=== PATIENT | female | born 1960 | race Caucasian/White ===

== ENCOUNTER 2017-07-04 14:29 | Emergency (ER) | payer BC, OTHER ==
[~2017-07-04] VITALS: Ht 157.5 cm; Wt 107.4 kg
[~2017-07-04 14:29] MED LIST: BP MED; DIABETES MED
[2017-07-04 14:32] VITALS: Ht 157.5 cm; Wt 107.4 kg
[2017-07-04] MEDS ORDERED: HYDROCODONE/APAP (5/325) TAB PO ONE (17:00)
--- NOTE | 2017-07-04 17:12 | RADRPT ---
PROCEDURE: Left wrist series CLINICAL INDICATION: Left wrist pain. TECHNIQUE: AP, oblique, and lateral views of the left wrist were obtained. COMPARISON: None FINDINGS: No acute fracture or dislocations are seen. The osseous structures are well mineralized. Moderate osteoarthritis of the radiocarpal joint is seen. The remaining articular surfaces are normal. No so ft tissue abnormalities are seen. IMPRESSION: Moderate osteoarthritis of the radiocarpal joint. RPTAT: HPNM Physician Ileana Date Time Electronically viewed and signed by Physician Ileana on 07/04/2017 17:12 /
[2017-07-04] MEDS ORDERED: HYDR-906 PO (17:27)
[2017-07-04] MEDS ORDERED: NAPR-688 PO (17:27)
[2017-07-04] MEDS ORDERED: POLY17PO6 PO (17:29)
--- NOTE | 2017-07-04 17:32 | ERD ---
ER Documentation Chief Complaint Chief Complaint left wrist pain x 1 month HPI This 56-year-old female comes in with family for having left wrist pain on and off for a month. It hurts most when she flexes or extends the wrist. Pain is mostly in the lateral side of the wrist and does travel up the arm on the lateral side sometimes to the elbow. She has no known trauma to the area during this time or before. She is a diabetic with hypertension is otherwise healthy. ROS All systems reviewed and are negative except as per history of present illness. Medications Home Meds Active Scripts Polyethylene Glycol* (Miralax*) 17 Gm Powd.pack, 17 GM PO DAILY for CONSTIPATION , #7 Prov:ELLA STREET DO 07/04/17 Hydrocodone/Acetaminophen ([place] 5-325 Tablet) 1 Each Tablet, 1 EACH PO Q6 for SEVERE PAIN LEVEL 7-10, #20 TAB Prov:ELLA STREET DO 07/04/17 Naproxen* (Naproxen*) 500 Mg Tablet, 500 MG PO BID, #30 TAB Prov:ELLA STREET DO 07/04/17 Reported Medications [Diabetes Med] No Conflict Check 08/05/13 [Bp Med] No Conflict Check 08/05/13 Allergies Allergies: Coded Allergies: No Known Allergy (Unverified , 08/05/13) PMhx/Soc History of Surgery: Yes (bilateral knee replacement) Anesthesia Reaction: No Hx Neurological Disorder: No Hx Respiratory Disorders: No Hx Cardiac Disorders: Yes (diabetic; hypertension) Hx Psychiatric Problems: No Hx Miscellaneous Medical Probl: Yes (arthritis) Hx Alcohol Use: No Hx Substance Use: No Hx Tobacco Use: No Smoking Status: Never smoker Physical Exam Vitals Vital Signs Date Time Temp Pulse Resp B/P Pulse Ox O2 Delivery O2 Flow Rate FiO2 07/04/17 14:32 97.7 72 18 192/91 98 Physical Exam Const: [] No distress Eyes: Normal Conjunctiva ENT: Normal External Ears, Nose and Mouth. Ext: No cyanosis, or edema. Tenderness on tapping of the l left ateral wrist , Phalen's and reverse Phalen's tests are positive and reproduce extreme pain she is not able to flex the wrist 90 in either direction. Tapping along the lateral elbow is also caused shooting pain. Distal pulses intact with good capillary refill. Neur: Awake and alert Psych: Normal Mood and Affect Results 24 hrs Current Medications Medications (Trade) Dose Ordered Sig/Ami Route PRN Reason Start Time Stop Time Status Last Admin Dose Admin Acetaminophen/ Hydrocodone Bitart ([place] (5/325)) 1 tab ONCE ONCE PO 07/04/17 17:00 07/04/17 17:01 DC 07/04/17 17:14 Procedures/MDM Ulnar nerve entrapment versus osteoarthritis itself. I should read this could actually be exacerbating the canal of the ulnar nerve causing her to have the pain. I gave her a Velcro wrist splint. No evidence of fractures. I am going to also prescribe her naproxen and [place] for the pain. Discharging with hand clinic follow-up as well as instructions to call her primary care doctor to see a hand specialist for possible invasive or noninvasive treatment of her ulnar nerve entrapment. Departure Diagnosis: Primary Impression: Carpal tunnel syndrome of left wrist Additional Impression: Wrist pain, left Condition: Stable Patient Instructions: What Is Carpal Tunnel Syndrome (CTS)?, Wrist Sprain Referrals: [facility] Additional Instructions: Call your primary care doctor TOMORROW for an appointment during the next 2-3 for an appointment with a hand specialist. See the doctor sooner or return here if your condition worsens before your appointment time. ELLA STREET DO Jul 04, 2017 17:32
== END 2017-07-04 18:48 | disposition home or self-care (01) ==
LOC: FTE 14:29
DX: G56.02 Carpal tunnel syndrome, left upper limb (principal); E11.9 Type 2 diabetes mellitus without complications; I10 Essential (primary) hypertension; Z96.653 Presence of artificial knee joint, bilateral

== ENCOUNTER 2017-10-28 13:26 | Emergency (ER) | END 2017-10-28 19:59 | disposition home or self-care (01) ==

== ENCOUNTER 2018-05-12 15:28 | Emergency (ER) | END 2018-05-12 17:06 | disposition home or self-care (01) ==